=== PATIENT | female | born 1985 | race Two or more races ===

== ENCOUNTER 2024-06-13 12:33 | Emergency (ER) | payer MEDICAID | END 2024-06-13 14:51 | disposition home or self-care (01) | LOC: MW.ED 12:33 | DX: Z71.1 Person with feared health complaint in whom no diagnosis is made (principal); Z76.0 Encounter for issue of repeat prescription; Z87.39 Personal history of other diseases of the musculoskeletal system and connective tissue; Z75.8 Other problems related to medical facilities and other health care | CPT/HCPCS: 99283 ==

== ENCOUNTER 2024-09-21 08:08 | Emergency (ER) | payer MEDICAID ==
[2024-09-21] MEDS: Ketorolac 30 MG/ML SDV IM ONE (09:21)
[2024-09-21] MEDS: Orphenadrine 60 MG/2 ML Inj IM ONE (09:21)
== END 2024-09-21 10:06 | disposition home or self-care (01) ==
LOC: MW.ED 08:08
DX: M79.18 Myalgia, other site (principal); Z79.899 Other long term (current) drug therapy
CPT/HCPCS: 96372; 99283; J1885; J2360